=== PATIENT | male | born 1970 | race Caucasian/White ===

== ENCOUNTER 2019-10-10 03:25 | Emergency (ER) | payer SELFPAY ==
[2019-10-10] MEDS ORDERED: Morphine 4 MG/ML VIAL ONE (04:05)
[2019-10-10] MEDS ORDERED: Ondansetron PF 4 MG/2 ML Vial ONE (04:06)
[2019-10-10 04:10] LABS: Bacteria/HPF None Seen HPF (None Seen); Bilirubin Negative (Negative); Blood, Urine 2+ (Negative); Clarity Clear (Clear); Glucose, Urine (Dipstick) Normal (Negative); Leukocyte Negative Leu/uL (Negative); Nitrite Negative (Negative); Protein, Urine (Dipstick) 10 mg/dL (Neg-Trace); RBC/HPF 21-50 HPF (0-3); Squamous Epithelial 0-3 HPF (0-3); Urobilinogen Normal mg/dL (Less than 2); WBC/HPF 0-3 HPF (0-3)
[2019-10-10 04:18] LABS: #Eosinphils 0.1 thou/uL (0.0-0.7); #Lymphocytes 1.6 thou/uL (1.20-3.40); #Monocytes 0.7 thou/uL (0.11-0.59); #Neutrophils 10.4 thou/uL (1.40-6.50); %Basophils 0.2 % (0.0-1.0); %Eosinophils 0.7 % (0.0-10.0); %Lymphocytes 12.2 % (21.0-51.0); %Monocytes 5.5 % (0.0-10.0); %Neutrophils 81.4 % (42.0-75.0); Hemoglobin 14.9 g/dL (14.0-18.0); Mean Corpuscular HGB CONC 35.1 g/dL (32.0-36.0); Mean Corpuscular Volume 91.2 fL (78.0-98.0); Mean Platelet Volume 7.2 fL (7.4-10.4); Platelet Count 286 thou/uL (130-400); RBC Distribution Width 11.8 % (11.5-14.5); Red Blood Cell (RBC) Count 4.66 mill/uL (4.70-6.10); White Blood Cell (WBC) Count 12.8 thou/uL (4.8-10.8)
[2019-10-10 04:36] LABS: ALT (SGPT) 27 U/L (8-55); AST (SGOT) 21 U/L (5-34); Albumin 4.4 g/dL (3.5-5.0); Alkaline Phosphatase 94 U/L (40-110); Anion Gap 13 mmol/L (10-20); BUN (Urea Nitrogen) 10 mg/dL (8.9-20.6); Bilirubin, Total 0.9 mg/dL (0.2-1.2); Calc. Creatinine Clearance 0 mL/min (70-130); Calcium 9.8 mg/dL (7.8-10.44); Carbon Dioxide 24 mmol/L (22-29); Chloride 103 mmol/L (98-107); Estimated GFR-MDRD 73; Globulin 3.6 g/dL (2.4-3.5); Glucose 129 mg/dL (70-105); Lipase 33 U/L (8-78); Potassium 3.7 mmol/L (3.5-5.1); Sodium 136 mmol/L (136-145)
--- NOTE | 2019-10-10 07:41 | CT ---
PRELIMINARY REPORT/[facility]/EMERGENCY AFTER HOURS PROCEDURE: History: Abdominal pain, nausea. History of hernia surgery. CT abdomen pelvis with 100 cc [id number] IV contrast. Comparison: None. Findings: Atelectatic changes at the lung bases. The liver, gallbladder, pancreas, spleen and adrenal glands are unremarkable. Bilateral perinephric stranding more pronounced on the left. Tiny density seen in the distal left ureter on image 86 with minimal distention of the ureter. No right r enal or ureteral stones or hydronephrosis. Tiny hiatal hernia. The stomach and small bowel are otherwise unremarkable. No bowel obstruction. The appendix is normal. Colonic diverticulosis. No free fluid or free air. The bladder is grossly unremarkable. The aorta is intact. Mild degenerative changes of the spine. 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 Impression: 1. Punctate 1 mm stone in the distal left ureter with mild distention of the left ureter. There is some asymmetric left perinephric stranding. Findings could be related to mild obstruction although infection not excluded. Correlate with UA. 2. Colonic diverticulosis without diverticulitis. ELECTRONICALLY SIGNED BY: Edouard Vora MD Oct 10, 2019 5:02:54 AM [employer] FINAL REPORT: CT ABDOMEN AND PELVIS WITH IV CONTRAST: I agree with the report given by Dr. Oralia Ribeiro of [facility]. There are couple of tiny low-density lesion in the liver measuring up to 5 mm, likely benign. Transcribed Date/Time: 10/10/2019 8:25 AM
[2019-10-10] MEDS ORDERED: Iopamidol-370 76% 500 ML 1 ML ONE (14:35)
== END 2019-10-10 05:08 | disposition home or self-care (01) ==
LOC: ERS 03:25
DX: N20.2 Calculus of kidney with calculus of ureter (principal); I10 Essential (primary) hypertension; F41.9 Anxiety disorder, unspecified; F32.9 Major depressive disorder, single episode, unspecified
CPT/HCPCS: 74177; 80053; 81003; 81015; 83690; 85025; 96374; 96375; J2270; J2405; Q9967